=== PATIENT | male | born 1950 | race Asian ===

== ENCOUNTER 2017-01-09 08:27 | Emergency (ER) | payer BC ==
[2017-01-09 08:50] LABS: BASO % 0.4 % (0-2); EOS % 1.4 % (0-7); EOSINOPHIL ABSOLUTE COUNT 0.1 tho/cmm (0.0-0.7); HCT-HEMATOCRIT 50.6 % (36.0-53.5); HGB-HEMOGLOBIN 17.5 gm/dl (13.5-17.0); IMMATURE GRANULOCYTES ABSOLUTE 0.02 tho/cmm (0-0.03); IMMATURE GRANULOCYTES PERCENT 0.3 % (0-0.3); LYMPH % 16.8 % (20-45); LYMPH ABSOLUTE COUNT 1.2 tho/cmm (0.8-4.5); MCH (MEAN CORPUSCULAR HGB) 30.7 pg (28.0-32.0); MCHC MEAN CORPUSCULAR HGB CONC 34.6 % (32.0-36.0); MCV (MEAN CELL VOLUME) 88.8 fl (82.0-96.0); MEAN PLATELET VOLUME 10.4 cmc (9.4-12.4); MONO % 8.7 % (0-12); MONOCYTE ABSOLUTE COUNT 0.6 tho/cmm (0.0-1.2); NEUTROPHIL ABSOLUTE COUNT 5.4 tho/cmm (1.6-8.0); NEUTROPHIL-AUTOMATED 5.4 tho/cmm (1.6-8.0); NEUTROPHILS % 72.4 % (40-80); PLATELET COUNT 210 tho/cmm (150-450); WHITE BLOOD COUNT 7.4 tho/cmm (4.0-10.0)
[2017-01-09 09:08] LABS: ANION GAP 15 mmol/L (0-20); BLOOD UREA NITROGEN 20 mg/dl (6-24); CALCIUM 8.3 mg/dl (8.5-10.5); CARBON DIOXIDE-VENOUS 25 mmol/L (22-32); CHLORIDE 107 mmol/l (96-110); CREATININE 1.38 mg/dl (0.60-1.30); GLUCOSE 137 mg/dL (70-110); SODIUM 143 mmol/L (135-145); eGFR VALUE FOR BLACK 62 mL/Min
[2017-01-09 09:15] LABS: POTASSIUM 3.6 mmol/L (3.7-5.1)
[2017-01-09] MEDS ORDERED: ROSUVASTATIN CA20 MG PO (09:40)
[2017-01-09] MEDS ORDERED: RYTHMOL SR225 M1 PO (09:41)
[2017-01-09] MEDS ORDERED: LANOXIN125 MC3 PO (09:42)
[2017-01-09] MEDS ORDERED: DILTIAZEM 24HR120 M4 PO (09:47)
[2017-01-09] MEDS ORDERED: XARELTO20 M1 PO (10:17)
[2017-01-09] MEDS ORDERED: ASPIRIN325 M3 PO (10:17)
[2017-01-09] MEDS ORDERED: NIASPAN500 M1 PO (10:18)
== END 2017-01-09 10:45 ==
LOC: EDMED 08:27
PROVIDERS: Family Medicine
DX: R55 Syncope and collapse (principal); I48.91 Unspecified atrial fibrillation; F17.210 Nicotine dependence, cigarettes, uncomplicated; Z88.0 Allergy status to penicillin